=== PATIENT | male | born 1990 | race Caucasian/White ===

== ENCOUNTER 2023-04-06 11:58 | Observation (INO) ==
[2023-04-06 13:14] LABS: ABS Lymphocytes 0.7 10^3/uL (1.0-4.8); ABS Monocytes 0.9 10^3/uL (0.0-1.1); ABS Neutrophils 9.4 10^3/uL (1.5-7.6); ABS Nucleated RBC 0.01 10^3/ul; Eosinophil % 0.3 %; Hematocrit 44.6 % (38-53); Hemoglobin 15.1 g/dL (13.2-16.3); Lymphocyte % 6.2 %; Mean Corpuscular Hemoglobin 30.6 pg (27-33); Mean Corpuscular Hgb Conc 33.7 g/dL (31-36); Mean Corpuscular Volume 90.9 fL (80-97); Mean Platelet Volume 7.6 fL (7.5-11.2); Nucleated Red Blood Cells % 0.1 %/100WBC (0.0-0.8); Platelet Count 238 10^3/uL (150-450); Red Blood Count 4.91 10^6/uL (4.06-5.63); Red Cell Distribution Width 13.3 % (12-17); White Blood Count 11.1 10^3/uL (3.6-10.2)
[2023-04-06 13:36] LABS: Albumin 4.6 g/dL (3.2-5.2); Albumin/Globulin Ratio 1.8 (1-3); Calcium 9.3 mg/dL (8.6-10.3); Creatinine, Serum 0.83 mg/dL (0.67-1.17); Globulin 2.5 g/dL (2-4); Potassium 4.8 mmol/L (3.5-5.0); Total Bilirubin 0.6 mg/dL (0.2-1.0); Total Protein 7.1 g/dL (6.4-8.9); eGFR CKD-EPI 120.7 (>60)
[2023-04-06] MEDS ORDERED: Iohexol 300 (CONTRAST) 10 ML SDV IV ONE (16:01)
[2023-04-06] MEDS ORDERED: Iohexol 350 (CONTRAST) 500 ML MDV IV ONE (18:25)
[2023-04-06] MEDS ORDERED: Piperacillin/Tazobac 3.375 BAG 3.375 GM/100 ML BAG IV ONE (19:25)
[2023-04-06] MEDS ORDERED: Famotidine IV 10 MG/ML 2 ml VIAL (20 mg) IV SLOW PU ONE (19:26)
[2023-04-06] MEDS ORDERED: Morphine 4 MG/ML VIAL (1 ml) IV ONE (19:26)
[2023-04-06] MEDS ORDERED: Lactated Ringers 1000 ml BAG 1,000 ML IV ONE (19:26)
[2023-04-06] MEDS ORDERED: Ondansetron 4 mg VIAL 2 MG/ML 2 ml VIAL IV PRN (20:08)
[2023-04-06] MEDS ORDERED: HYDROmorphone 0.5 MG/0.5 ML SYRINGE IV SLOW PU PRN (20:20)
[2023-04-06] MEDS ORDERED: D5W 1/2 NS 40 Meq KCL 1000 ml 1,000 ML IV SCH (21:00)
[2023-04-06] MEDS ORDERED: fentaNYL 100 mcg/2 ml 50 MCG/ML VIAL ONE (21:25)
[2023-04-06] MEDS ORDERED: Rocuronium 50 mg VIAL 10 mg/ml 5 ml VIAL (50 mg) ONE (21:25)
[2023-04-06] MEDS ORDERED: Midazolam 2 mg/2 ml VIAL 1 mg/ml 2 ml VIAL (2 mg) ONE ×2 (21:25→23:41)
[2023-04-06] MEDS ORDERED: Propofol 10 MG/ML 20 ML BTL ONE (21:27)
[2023-04-06] MEDS ORDERED: Lidocaine 1% w EPI 1:100,000 MDV 20 ML VIAL ONE (22:46)
[2023-04-06] MEDS ORDERED: Bupivacaine 0.25% SDV 30 ML ONE (22:46)
[2023-04-06] MEDS ORDERED: HYDROmorphone 0.5 MG/0.5 ML SYRINGE ONE (23:13)
[2023-04-06] MEDS ORDERED: Dexamethasone IV 4 MG/ML VIAL 1 ml VIAL ONE (23:17)
[2023-04-06] MEDS ORDERED: Ondansetron 4 mg VIAL 2 MG/ML 2 ml VIAL ONE (23:17)
[2023-04-07] MEDS ORDERED: Ondansetron 4 mg VIAL 2 MG/ML 2 ml VIAL ONE (00:12)
[2023-04-07 00:26] LABS: Rapid COVID-19 Molecular Undetected (Undetected)
[2023-04-07] MEDS ORDERED: Piperacillin/Tazobac 3.375 BAG 3.375 GM/100 ML BAG IV SCH (01:00)
[2023-04-07 10:02] VITALS: BP 125/81
== END 2023-04-07 11:24 | disposition home or self-care (01) ==
LOC: EDHOLD 11:58 → ED 11:58 → AA 20:15 → SSU 04-07 01:20
PROVIDERS: ADMIT Surgery; ATTEND Surgery